=== PATIENT | female | born 1955 | race Caucasian/White ===

== ENCOUNTER 2016-07-29 17:01 | Emergency (ER) | payer OTHER ==
[2016-07-29 17:07] VITALS: BP 172/101; BMI 33.6
[2016-07-29] MEDS ORDERED: PHENERGAN INJ 25 MG IM ONE (17:41)
[2016-07-29] MEDS ORDERED: TORADOL 60 MG VIAL IM ONE (17:41)
--- NOTE | 2016-07-29 17:41 | DR.GENAD ---
HPI - PCP Primary Care Physician: [facility] - HPI Comment HPI Comment: PATIENT REPORT SEVERE HEADACHE WITH NAUSEA. WORSE TODAY. STARTED 2 WEEKS AGO. DENIES SINUS SYMTOMS OR TRAUMA. NO FEVER. - Complaint/Symptoms Chief Complaint Doctors Comments: HEADACHE TIMES 2 WEEKS. Chief Complaint:: pt has had a headache for the past two weeks and today it has got really bad - Nurses notes reviewed Nurses Notes Review: Yes - Source History Provided: Patient - Mode of Arrival Mode of Arrival: Ambulatory - Timing Onset of Chief Complaint: 07/15/16 Came on: Suddenly - Duration Duration: Constant Duration: Days - Severity Severity: Severe PMH - PMH Past Medical History: Yes Past Medical History: Diabetes Past Surgical History: Yes Surgical History: Appendectomy, Hysterectomy Past Surgical History Comment: tuble - Family History History of Family Medical Conditions: Yes Family Medical History: Diabetes Mellitus, [place], Coronary Artery Disease - Social History Does patient currently use any type of tobacco product: No Have you used tobacco products in the last 12 months: No Type of Tobacco Use: None Does any household member use tobacco: No Alcohol Use: None Do you use any recreational Drugs:: No Lives With: Family Lives Where: Home - infectious screening In the last 2 months have you had wt loss of >10#?: NO Have you had fever, night sweats or hemotysis?: No Have you traveled outside the country in the last 6 months?: No Isolation: Standard ROS - Review of Systems Constitutional: No Symptoms Reported Eyes: Photophobia ENTM: No Symptoms Reported. negative: Ear Pain, Nose Discharge, Nose Congestion , Throat Pain Respiratoy: No Symptoms Reported Cardiovascular: No Symptoms Reported Gastrointestinal/Abdominal: No Symptoms Reported Genitourinary: No Symptoms Reported Neurological: Headache Musculoskeletal: No Symptoms Reported Integumentary: No Symptoms Reported Hematologic/Lymphatic: No Symptoms Reported Endocrine: No Symptoms Reported All Other Systems: Reviewed and Negative PE - Vital Signs Vitals: Temperature 98.8 F Pulse Rate 97 Respiratory Rate 18 Blood Pressure [Left Arm] 156/93 Blood Pressure 172/101 O2 Sat by Pulse Oximetry 100 - General Limitations: No Limitations General Appearance: Alert - Head Head Exam: Normal Inspection - Eyes Eye exam: Normal Appearance - ENT ENT Exam: Normal External Ear Exam External Ear Exam: Normal External Inspection TM/Canal Exam: Bilateral Normal Nose Exam: Normal Nose Exam Mouth Exam: Normal Inspection Throat Exam: Normal Inspection - Neck Neck Exam: Normal Inspection - Chest Chest Inspection: Symmetric Chest Wall Rise - Respiratory Respiratory Exam: Normal Lung Sounds Bilat Respiratory Exam: Bilateral Clear to Auscultation - Cardiovascular Cardiovascular Exam: Regular Rate, Normal Rhythm, Normal Heart Sounds - Abdominal Exam Abdominal Exam: Normal Bowel Sounds, Soft. negative: Tenderness - Extremities Extremities Exam: Normal Inspection - Back Back Exam: Normal Inspection - Neurologic Neurological Exam: Alert, Oriented X3 - Psychiatric Psychiatric Exam: Anxious - Skin Skin Exam: Normal Color MDM - Additional Information Additional Information Obtained From: Family - Differential Diagnosis Differential Diagnosis: HEADACHE, SINUSITIS, Course - Treatment Treatment: SEE ORDERS. - Reevaluation 1st: Improved (WITH IM TORADOL IN ED) - Education/Counseling Education/Counseling: Patient, Education Educated On: Treatment, Diagnosis, Needs for Follow Up ROR - XRAY XRAY Interpreted by: Radiologist XRAY Findings: REPORT DISCUSS WITH PATIENT. - Diagnosis Discharge Problem: Headache Qualifiers: Headache type: tension-type Headache chronicity pattern: acute headache Intractability: intractable Qualified Code(s): G44.201 - Tension-type headache, unspecified, intractable - Discharge Plan Disposition: 01 HOME, SELF-CARE Condition: Stable Prescriptions: [id number]-Fjhow [Fioricet 50-300-40 mg] 1 cap PO Q6H PRN #20 cap PRN Reason: Migraine Headache Ondansetron HCl [Zofran Tab 4 mg] 4 mg PO Q8H PRN #12 tab PRN Reason: Nausea/Vomiting - Follow ups/Referrals Follow ups/Referrals: Dominic PEREZ [Primary Care Provider] - 3 days - Instructions Instructions: Tension Headache Additional Instructions: RETURN TO ED IF WORSE.
[2016-07-29] MEDS ORDERED: PHENERGAN INJ 25 MG ONE (17:49)
[2016-07-29] MEDS ORDERED: TORADOL 60 MG VIAL ONE (17:49)
--- NOTE | 2016-07-29 18:39 | CT ---
HISTORY: Headache Study: CT brain without contrast Comparison: None Technique: Multiple axial images of the brain were obtained from the skull base to the vertex without administr ation of IV contrast. Findings: No acute intraparenchymal hemorrhage or mass can be identified. No extra-axial fluid collections ar e seen. No alteration in the attenuation of the brain parenchyma can be identified to suggest acute or subacute ischemic change. The ventricular system is symmetric and nondilated. Subtle patchy ar eas of decreased attenuation are seen within the periventricular, subcortical, and subinsular white matter. These findings are nonspecific but may reflect changes of chronic small vessel ischemic dise ase. If symptoms or clinical concern persist recommend continued followup for further evaluation wit h consideration for MRI. IMPRESSION: 1. Findings suggesting changes of chronic small vessel ischemic disease. Reported By:
== END 2016-07-29 19:17 | disposition home or self-care (01) ==
LOC: ER 17:01
DX: G44.201 Tension-type headache, unspecified, intractable (principal)
CPT/HCPCS: 70450; 96372; 99282; 99283; J1885; J2550